=== PATIENT | male | born 2000 | race Two or more races ===

== ENCOUNTER 2024-07-23 16:41 | Emergency (ER) | payer SELFPAY ==
[2024-07-23 16:52] VITALS: BP 177/121; PULSE 79; RESP 20; TEMP 36.4; O2SAT 100
--- NOTE | 2024-07-23 17:09 | ED.GENADULT ---
HPI - General Adult General Chief complaint: Dental/Oral Stated complaint: Tooth Pain Source: patient Mode of arrival: ambulatory Limitations: no limitations History of Present Illness HPI narrative: Patient presents for evaluation of right lower dental pain. Symptom onset this morning. He states the pain is constant, 9/10 in severity. He tried taking extra-strength Tylenol and 800 mg of ibuprofen without much improvement. He does smoke cigarettes and vape. He denies any fever or chills, nausea, vomiting. Related Data Allergies Allergy/AdvReac Type Severity Reaction Status Date / Time No Known Allergies Allergy Verified 07/23/24 16:51 Review of Systems Review of Systems: CONSTITUTIONAL: Denies fever, chills, or sweats. EYES: Denies visual changes, redness, or discharge. ENT: Reports right lower dental pain. Denies rhinorrhea, congestion, sore throat, or otalgia. CARDIOVASCULAR: Denies chest pain, palpitations, or edema. RESPIRATORY: Denies cough or dyspnea. GASTROINTESTINAL: Denies abdominal pain, nausea, vomiting, or diarrhea. GENITOURINARY: Denies dysuria or hematuria. SKIN: Denies rash or itching. MUSCULOSKELETAL: Denies back pain, joint pain, or myalgia. NEUROLOGIC: Denies headache, numbness, dizziness, or weakness. PSYCHIATRIC: Denies anxiety or depression. PMFSH Past Medical History Medical History No pertinent past medical history Surgical History Surgical History No pertinent past surgical history Family History Family History Mother Family history non-contributory Social History Social History Smoking packs per day: 0.25 Smoking cigarettes per day: 5.0 Smoking status: Current every day smoker Tobacco type: cigarettes and e-cigarettes/vaping Alcohol intake: current Drinks per week: 15 Substance use: never Occupation/Education: student Gender identity (if verbalized by the patient): Male Spiritual care concerns: No Exam Narrative: GENERAL: Well-appearing, well-nourished, and in no acute distress. HEAD: Normocephalic, atraumatic. EYES: PERRLA and EOMI. ENT: Nares clear, no rhinorrhea or epistaxis. Mucous membranes moist. Oropharynx without tonsillar hypertrophy exudate or other lesions. Tooth #32 has restorative material in place. The lateral aspect of tooth #32 appears fractured. Bilateral TMs pearly de dios nonbulging NECK: Supple. No adenopathy or masses. No carotid bruits or JVD CHEST: Clear to auscultation. No respiratory distress. No wheezes rales or rhonchi HEART: Regular rate and rhythm. No murmur heard. Normal peripheral pulses. ABDOMEN: Soft, nontender, nondistended, normal active bowel sounds. EXTREMITIES: Normal range of motion. No edema. SKIN: Warm, dry, no rash. NEURO: No focal deficits. Alert and oriented x3. PSYCH: Normal mood and affect. Course Course Emergency Course: This is a 23-year-old male who presented for evaluation of right lower dental pain. He has small fracture in the lateral aspect of tooth #32. Will discharge with penicillin and tramadol. He was provided with paper prescription for tramadol because script would not send electronically. He is advised on smoking cessation and should follow-up with a dentist. In the event that he has worsening pain or intractable symptoms he should go to the emergency department. I also advised that he follow-up with primary care provider regarding his blood pressure.. Patient in agreement with plan of care. Level of Care: Express Care Visit Vital Signs Vital signs: Vital Signs Temperature 36.4 C 07/23/24 16:52 Pulse Rate 79 07/23/24 16:52 Respiratory Rate 20 07/23/24 16:52 Blood Pressure 177/121 H 07/23/24 16:52 Pulse Oximetry 100 07/23/24 16:52 Oxygen Delivery Room Air 07/23/24 16:52 Temperature 36.4 C 07/23/24 16:52 Pulse Rate 79 07/23/24 16:52 Respiratory Rate 20 07/23/24 16:52 Blood Pressure 177/121 H 07/23/24 16:52 Pulse Oximetry 100 07/23/24 16:52 Oxygen Delivery Room Air 07/23/24 16:52 Medical Decision Making Vital Signs Vital Signs: Vital Signs Temperature 36.4 C 07/23/24 16:52 Pulse Rate 79 07/23/24 16:52 Respiratory Rate 20 07/23/24 16:52 Blood Pressure 177/121 H 07/23/24 16:52 Pulse Oximetry 100 07/23/24 16:52 Oxygen Delivery Room Air 07/23/24 16:52 Temperature 36.4 C 07/23/24 16:52 Pulse Rate 79 07/23/24 16:52 Respiratory Rate 20 07/23/24 16:52 Blood Pressure 177/121 H 07/23/24 16:52 Pulse Oximetry 100 07/23/24 16:52 Oxygen Delivery Room Air 07/23/24 16:52 Discharge Plan Discharge Clinical Impression: Fracture of tooth, Elevated blood pressure reading Patient Disposition: Home Condition: Stable Instructions: Antibiotic Form, Hypertension (ED), Toothache (ED) Patient Language: Citizen Of [place] Prescriptions: New penicillin V potassium 500 mg tablet 500 mg PO Q6H 10 Days Qty: 40 0RF Follow-up/Referrals: Abe Lopez MD [Physician] - Time of Disposition: 17:08
[2024-07-23 17:14] VITALS: BP 177/111
== END 2024-07-23 17:16 | disposition home or self-care (01) ==
PROVIDERS: Emergency Provider Nurse Practitioner
DX: S02.5XXA Fracture of tooth (traumatic), initial encounter for closed fracture (principal); X58.XXXA Exposure to other specified factors, initial encounter; R03.0 Elevated blood-pressure reading, without diagnosis of hypertension; F17.210 Nicotine dependence, cigarettes, uncomplicated; F17.290 Nicotine dependence, other tobacco product, uncomplicated
CPT/HCPCS: 99203; G0463